=== PATIENT | male | born 1960 | race Caucasian/White ===

== ENCOUNTER → 2019-10-22 11:35 | Outpatient (CLI) | payer BC, SELFPAY ==
--- NOTE | ~2019-10-22 | XR_ITS ---
EXAMINATION: XR chest 2V EXAM DATE: 10/22/2019 11:58 INDICATION: Cough. High blood pressure. TECHNIQUE: Frontal and lateral projections of the chest obtained and reviewed. There is no prior alpesh dy for comparison. FINDINGS: The lungs are clear. There are no pleural effusions. The cardiomediastinal silhouette is within normal limits. There is no pneumothorax suspected. Bilateral humeral head rotator cuff repai r anchors. IMPRESSION: No acute cardiopulmonary findings. Reviewed, dictated and finalized at location A.
== END ==
PROVIDERS: PCP Family Medicine; Visit Provider Family Medicine
DX: R05 Cough (principal)
CPT/HCPCS: 71046

== ENCOUNTER 2020-08-28 11:45 | Inpatient (IN) | payer BC, SELFPAY ==
[2020-08-28] VITALS (19 sets, daily range): BP systolic 105–195; BP diastolic 60–108; PULSE 64–113; RESP 11–22; TEMP 35.7–36.7; O2SAT 95–100
--- NOTE | ~2020-08-28 | XR_ITS ---
EXAMINATION: XR chest 2V DATE: 08/28/2020 12:09 INDICATION: Chest pain TECHNIQUE: Frontal and lateral views of the chest are obtained COMPARISON: 10/22/2019 FINDINGS: The lungs are free of acute opacities. There is no pleural effusion or pneumothorax. The ca rdiomediastinal silhouette is normal. There is mild thoracic spondylosis. Suture anchors are noted in the humeral heads. IMPRESSION: 1. No acute cardiopulmonary abnormality. Reviewed, dictated and finalized at location A.
--- NOTE | 2020-08-28 11:47 | ECG_ITS ---
Measurements Intervals [place] Rate: 97 P: 46 OR: 161 QRS: 34 QRSD: 90 T: 62 QT: 348 QTc: 443 Interpretive Statements SINUS RHYTHM BORDERLINE ST-T WAVE ABNORMALITY- HIGH LATERAL LEADS BASELINE ARTIFACT- I, III, AVL, AVF, V4 BORDERLINE ECG Electronically Signed On 08-28-2020 21:43:48 CDT by Travon Berry D.O.
[2020-08-28] MEDS: ASPIRIN 81 MG CHEWABLE TABLET 324 MG PO (11:55)
[2020-08-28 11:59] LABS: Basophils Percent Auto 0.4 % (0.2-1.2); Eosinophils Absolute Auto 0.1 K/mm3 (0-0.3); Eosinophils Percent Auto 0.9 % (0-4.4); Hematocrit 49.3 % (42.0-52.0); Hemoglobin 16.6 g/dL (14.0-18.0); Immature Granulocyte Absolute 0.02 K/mm3 (0.00-0.031); Immature Granulocyte Percent A 0.3 % (0-0.5); Lymphocytes Absolute Auto 1.64 K/mm3 (0.9-3.2); Mean Corpuscular HGB Conc 33.7 g/dl (32-36); Mean Corpuscular Hemoglobin 28.5 pg (26-34); Mean Corpuscular Volume 84.7 fl (80-100); Mean Platelet Volume 10.1 fl (7.4-10.4); Monocytes Absolute Auto 0.5 K/mm3 (0.1-0.6); Monocytes Percent Auto 6.6 % (2.6-8.5); Neutrophils Absolute Auto 5.2 K/mm3 (1.3-6.7); Neutrophils Percent Auto 69.8 % (45.5-73.1); Platelet Count Result 288 k/mm3 (150-375); Red Blood Count 5.82 M/mm3 (4.6-6.20); White Blood Count 7.5 K/mm3 (4.5-10.0)
[2020-08-28 12:09] LABS: Prothrombin Time 12.8 Seconds (11.1-14.7)
[2020-08-28 12:10] LABS: Partial Thromboplastin Time 32.5 SECONDS (22.3-36.8)
[2020-08-28 12:17] LABS: Anion Gap 11 mmol/L (8-16); Blood Urea Nitrogen 14 mg/dL (9-20); Carbon Dioxide 29 mmol/L (22-30); Chloride 100 mmol/L (98-107); Estimated CRCL calculation 73 ml/min; Estimated Glomerular Filt Rate > 60; Glucose 134 mg/dL (75-110); Potassium 4.6 mmol/L (3.4-5.0); Sodium 140 mmol/L (137-145)
--- NOTE | 2020-08-28 12:19 | ED.CHESTPAIN ---
HPI - Chest Pain General Chief Complaint: Chest Pain Stated Complaint: chest pain, elevated bp, dizzy several days Time Seen by Provider: 08/28/20 12:06 Source: patient Mode of arrival: ambulatory Limitations: no limitations History of Present Illness HPI narrative: Patient is a 59-year-old male complaining of chest pain, midsternal, 8 out of 10 earlier, now resolved, radiating to the left upper extremity started when he woke up this morning. Patient states that he has been having intermittent chest pain for the past 3 weeks. Patient denies any shortness of breath, abdominal pain, nausea, vomiting, diaphoresis, fever or chills. Related Data Allergies Allergy/AdvReac Type Severity Reaction Status Date / Time No Known Allergies Allergy Verified 08/16/20 15:40 Review of Systems Review of Systems: All systems reviewed & are unremarkable except as noted in HPI and below Constitutional: Constitutional: Denies body ache(s), Denies chills, Denies excessive sweating, Denies fatigue, Denies fever(s), Denies headache(s), Denies lethargy, Denies malaise, Denies weakness and Denies weight loss Eyes: Eyes: Denies blurry vision, Denies change in vision and Denies loss of vision ENT: Denies dizziness, Denies ear discharge, Denies headache(s), Denies lip swelling, Denies epistaxis, Denies nasal congestion, Denies neck pain, Denies throat swelling and Denies tongue swelling Cardiovascular: Cardiovascular: Denies diaphoresis, Denies rapid heart rate, Denies edema, Denies irregular heart rhythm, Denies lightheadedness, Denies palpitations, Denies dyspnea and Denies dyspnea on exertion Respiratory: Respiratory: Denies chest congestion, Denies cough, Denies hemoptysis, Denies dyspnea and Denies dyspnea on exertion Gastrointestinal: Gastrointestinal: Denies abdominal pain, Denies melena, Denies hematochezia, Denies diarrhea, Denies nausea, Denies vomiting and Denies hematemesis Musculoskeletal: Musculoskeletal: Denies abnormal gait, Denies deformity, Denies joint swelling, Denies limited range of motion, Denies neck pain and Denies numbness Neurologic: Denies Abnormal speech present, Denies abnormal gait, Denies confusion, Denies dizziness, Denies headache(s), Denies focal weakness, Denies loss of vision, Denies numbness, Denies Other visual disturbances, Denies Sensory deficit (Neuro) and Denies weakness Psychiatric: Psychiatric: Denies confusion, Denies depression, Denies auditory hallucinations, Denies homicidal ideation and Denies suicidal ideation Endocrine: Endocrine: Denies cold intolerance, Denies excessive sweating, Denies fatigue, Denies heat intolerance and Denies palpitations Hematologic/Lymphatic: Hematologic/Lymphatic: Denies easy bleeding and Denies easy bruising Allergic/Immunologic: Allergic/Immunologic: Denies lip swelling, Denies throat swelling and Denies tongue swelling PMFSH Past Medical History Medical History Asthma Complex sleep apnea syndrome Dyslipidemia Essential hypertension Hypertension Insomnia Surgical History Surgical History H/O rotator cuff surgery (Unknown) b/l - early Family History Family History Father Acute myocardial infarction Grandparent Cancer Grandparent Acute myocardial infarction Grandparent Cancer Grandparent Acute myocardial infarction Social History Social History Smoking status: Never smoker Alcohol intake: current Substance use: never Substance use type: does not use Gender identity (if verbalized by the patient): Male Exam Const: General: cooperative, healthy appearing, comfortable, no acute distress, well developed, alert and awake; No confusion Orientation/consciousness: oriented to person, oriented to p
[2020-08-28 12:22] LABS: Troponin I 0.851 ng/mL (0.000-0.034)
[2020-08-28] MEDS: NITROGLYCERIN SL 0.4 MG TABLET SUBLINGUAL ×2 (12:56→16:21)
[2020-08-28] MEDS: NITROGLYCERIN OINTMENT 1 INCH DOSE TRANSDERM (13:00)
[2020-08-28] MEDS: ENOXAPARIN 100 MG/ML SYRINGE 90 MG SUB-Q ×2 (13:02→23:11)
[2020-08-28] MEDS: METOPROLOL TARTRATE INJ 5 MG/5 ML VIAL IV PUSH (13:08)
--- NOTE | 2020-08-28 13:23 | PM.IMHP ---
H&P: HPI History of Present Illness Date/Time: 08/28/20 13:23Patient this is a 59-year-old male patient who has a history of having hypertension. The patient also has a history of asthma. The patient has asthma and uses an albuterol inhaler p.r.n.. Her while the patient was using his albuterol every day and his doctor told him not use it every day. 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 The patient stated that 10 days ago he went to his primary care doctor to tell her that he was having chest pain and shortness of breath with exertion. The patient also has had elevated blood pressure and has not been able to control it. He is on losartan at home. He stated that his chest pain comes and goes. The patient gets chest pain and shortness of breath with exertion and it is relieved by resting. The patient stated that his primary care doctor was going to set up his stress test but has not done so as of yet. The patient stated that he has a pressure in his chest and that it goes down both arms. The patient had a tear in his eye when I saw him in the emergency room. The patient stated that his pain level is a 5 per 6/10. He is not the worst pain that he has ever experience. He was diaphoretic at 1 time and felt nauseated as well. The patient was given aspirin, nitro sublingual, Lovenox and Lopressor IV push in the emergency room. Chest x-ray was read as no acute cardiopulmonary abnormality. His troponin is noted to be 0.851 which is his baseline. Cardiology has been consulted. The patient is being admitted for observation status on 08/28/2020 date of admission. Chief Complaint: Chest pain Review of Systems Review of Systems: All systems reviewed & are unremarkable except as noted in HPI and below Constitutional: Constitutional: Reports as per HPI and Reports no additional constitutional complaints Eyes: Eyes: Reports as per HPI and Reports no additional eye complaints ENT: Reports system reviewed and no additional complaints, except as documented and Reports Normal hearing present Cardiovascular: Cardiovascular: Reports no additional cardiovascular complaints Respiratory: Respiratory: Reports no additional respiratory complaints and Reports no additional respiratory complaints Gastrointestinal: Gastrointestinal: Reports as per HPI and Reports no additional gastrointestinal complaints Musculoskeletal: Musculoskeletal: Reports no additional musculoskeletal complaints Integumentary/Breasts: Skin/Breast: Reports system reviewed and no additional complaints, except as docu and Reports as per HPI Neurologic: Reports system reviewed and no additional complaints, except as documented, Reports as per HPI and Reports Normal hearing present Psychiatric: Psychiatric: Reports no additional psychiatric complaints and Reports as per HPI Endocrine: Endocrine: Reports no additional endocrine complaints Hematologic/Lymphatic: Hematologic/Lymphatic: Reports no additional hematologic/lymphatic complaints Allergic/Immunologic: Allergic/Immunologic: Reports no additional allergic/immunologic complaints [facility] Past Medical History Medical History (Updated 08/28/20 @ 13:38 by Jana Burton NP) Asthma Complex sleep apnea syndrome Dyslipidemia Essential hypertension Hearing loss Hypertension Insomnia Obstructive sleep apnea intolerant of a BiPAP machine Surgical History Surgical History H/O rotator cuff surgery (Unknown) b/l - early Family History Family History Father Acute myocardial infarction Grandparent Cancer Grandparent Acute myocardial infarction Grandparent Cancer Grandparent Acute myocardial infarction Social History Social History (Updated 08/28/20 @ 13:44 by Jana Burton,
[2020-08-28 15:27] LABS: Troponin I 0.979 ng/mL (0.000-0.034)
--- NOTE | 2020-08-28 15:40 | PC.NURSE ---
Cardiopulmonary Rehab Services flyer was given to patient in cardiac admissions folder.
--- NOTE | 2020-08-28 16:15 | ADMGEN ---
This patient, Je Urbina, was admitted to IMU Room 207-01 at 1412. Patient/family oriented to hospital policies and general routines including ID bracelet, bed and alarms, visiting hours, pain management, procedures, bathroom and other care routines, personal items, smoking policy, room service/diet, and visiting hours. Information on how to activate the Rapid Response Team has been discussed. Patient/Family are encouraged to report perceived risks to care and to ask questions if they do not understand what they are told or what they should do.
[2020-08-28] MEDS: ACETAMINOPHEN 325 MG TABLET 650 MG PO (16:17)
--- NOTE | 2020-08-28 17:23 | PM.CNCAR ---
Assessment and Plan Additional Plan this is a 59-year-old man with history of longstanding hypertension which has not been a serious problem or difficult to control for him. He now has symptoms that are rather concerning for exertional angina for several months getting worse in the last couple of weeks or so. His troponin levels are out of normal range but they are not rising or and or falling. He is asymptomatic now and has been placed on aspirin, anticoagulation and topical nitrates. I am going to place him on a beta-eyal and anticipate recommending coronary angiography. He understands this and is agreeable. We will anticipate proceeding with this examination on Saturday after the 28 of August holiday weekend. Becomes more unstable we will proceed more urgently. Osman Win MD [facility] History of Present Illness History of Present Illness Consult date/time: 08/28/20 17:23 Consult reason: chest pain Reason For Visit: nstemi Narrative: this is a 59-year-old man with a history of hypertension who is being seen at the request of the hospitalist because of chest pain. The patient does not know of any previous history of him having any cardiac problems. He states that he has been joint fairly good health most of his adult life other than modest hypertension. He began to experience symptoms of chest discomfort and shortness of breath about 2-3 months ago. 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 He mentioned these symptoms to his primary care physician during a recent appointment and a stress test was discussed but he says not scheduled at this time. He was told that if he had worsening symptoms he should come to the emergency department. The patient states that over the last 2 couple weeks or so the symptoms have progressed with modest activity he is having relatively significant central chest discomfort associated with some arm pain and the sense of lightheadedness. After an episode like this yesterday he came into the emergency department he was admitted and has been asymptomatic since being placed in the IMU. He did receive some nitroglycerin in the emergency room which relieved his symptoms. His troponin levels are modestly elevated but flat at 0.8 in 0.9. He has a benign looking electrocardiogram and is very comfortable at this time he has been placed on medical therapy with aspirin topical nitrates and Lovenox. He has not been placed on a beta-eyal. Review of Systems Constitutional: Constitutional: Reports no additional constitutional complaints Eyes: Eyes: Reports no additional eye complaints ENT: Reports system reviewed and no additional complaints, except as documented Cardiovascular: Cardiovascular: Reports as per HPI Respiratory: Respiratory: Reports as per HPI Gastrointestinal: Gastrointestinal: Reports no additional gastrointestinal complaints Musculoskeletal: Musculoskeletal: Reports no additional musculoskeletal complaints Integumentary/Breasts: Skin/Breast: Reports system reviewed and no additional complaints, except as docu Neurologic: Reports system reviewed and no additional complaints, except as documented Endocrine: Endocrine: Reports no additional endocrine complaints Hematologic/Lymphatic: Hematologic/Lymphatic: Reports no additional hematologic/lymphatic complaints Allergic/Immunologic: Allergic/Immunologic: Reports no additional allergic/immunologic complaints REPLACED BY [facility] Past Medical History Medical History (Updated 08/28/20 @ 13:38 by Jana Burton NP) Asthma Complex sleep apnea syndrome Dyslipidemia Essential hypertension Hearing loss Hypertension Insomnia Obstructive sleep apnea intolerant of a BiPAP machine Surgical History Surgical His
[2020-08-28] MEDS: traMADol HCL (*CRX) 25 MG TABLET PO ×2 (18:00→23:55)
[2020-08-28] MEDS: carvediloL 6.25 MG TABLET PO (20:41)
[2020-08-28] MEDS: METOPROLOL TARTRATE 25 MG TABLET PO (20:42)
[2020-08-28] MEDS: ZOLPIDEM TARTRATE (*CRX) 5 MG TABLET PO (23:14)
[2020-08-29] VITALS (14 sets, daily range): BP systolic 121–136; BP diastolic 70–81; PULSE 62–92; RESP 14–20; TEMP 35.5–36.6; O2SAT 95–99
--- NOTE | 2020-08-29 | ECHO_ITS ---
Patient Info Name: Je Urbina Age: 59 years : 1960 Gender: Male Ht: 68 in Wt: 193 lbs BSA: 2.07 m2 HR: 63 bpm BP: 121 / 73 mmHg Heart Rhythm: Sinus Rhythm Technical Quality: Good Exam Date: 08/29/2020 11:59 AM Exam Location: [facility] Pulmonary Exam Room: 207 Patient Status: Inpatient Admit Date: 08/29/2020 Staff Ordering Physician: Jana Burton NP Television Cabinet Finisher: Radha Sanon RDCS Attending Provider: Subhash Whelan MD Referring Physician: Micheal VIDALES; Exam Type: CA echo doppler color flow Study Info Indications - uincontrolled htn chest pain Complete two-dimensional, color flow and Doppler transthoracic echocardiogram is performed. Summary 1. Complete two-dimensional, color flow and Doppler transthoracic echocardiogram is performed. 2. Mild concentric LVH with normal dimension and good systolic function, no wall motion abnormalities. 3. No significant valvular disease. Left Ventricle Left ventricular chamber dimension is normal. Left ventricular systolic function is normal, estimated at 60-65%. There is mild concentric increased left ventricular wall thickness. The left ventricular diastolic function is grade I diastolic dysfunction. Right Ventricle Right ventricular chamber dimension is normal. Left Atria Left atrial chamber dimension is normal. Right Atria Right atrial chamber dimension is normal. Aortic Valve The aortic valve is normal. Pulmonic Valve The pulmonic valve is normal. Mitral Valve The mitral valve has normal leaflets. Tricuspid Valve The tricuspid valve leaflets are normal. Pericardium/Pleural The pericardium appears normal. Aorta The aortic root size at the sinus of Valsalva is normal. Left Ventricular Outflow Tract Name Value Normal LVOT 2D LVOT Diameter 2.1 cm LVOT Doppler LVOT Peak Gradient 4 mmHg LVOT Mean Gradient 3 mmHg LVOT VTI 22 cm LVOT VTI/AV VTI Ratio 0.8 LVOT Stroke Volume 76 ml LVOT CO 17.1 l/min LVOT CI 8.2 l/min/m2 Pulmonic Valve Name Value Normal PV Doppler PV Peak Gradient 2 mmHg Mitral Valve Name Value Normal MV Doppler MV Decel Rolette 283 cm/s2 MV PHT 60 ms MV Area (PHT) 3.6 cm2 4.0-5.0 MV Diastolic Function
[2020-08-29 04:44] LABS: Basophils Percent Auto 0.3 % (0.2-1.2); Eosinophils Absolute Auto 0.1 K/mm3 (0-0.3); Eosinophils Percent Auto 1.1 % (0-4.4); Hematocrit 41.8 % (42.0-52.0); Hemoglobin 14.3 g/dL (14.0-18.0); Immature Granulocyte Absolute 0.04 K/mm3 (0.00-0.031); Immature Granulocyte Percent A 0.5 % (0-0.5); Lymphocytes Absolute Auto 2.39 K/mm3 (0.9-3.2); Mean Corpuscular HGB Conc 34.2 g/dl (32-36); Mean Corpuscular Hemoglobin 28.7 pg (26-34); Mean Corpuscular Volume 83.8 fl (80-100); Mean Platelet Volume 10.3 fl (7.4-10.4); Monocytes Absolute Auto 0.9 K/mm3 (0.1-0.6); Monocytes Percent Auto 9.9 % (2.6-8.5); Neutrophils Absolute Auto 5.4 K/mm3 (1.3-6.7); Neutrophils Percent Auto 61.2 % (45.5-73.1); Platelet Count Result 244 k/mm3 (150-375); Red Blood Count 4.99 M/mm3 (4.6-6.20); Red Cell Distribution Width 13.2 % (11.5-14.5); White Blood Count 8.9 K/mm3 (4.5-10.0)
[2020-08-29 05:00] LABS: Alanine Aminotransferase 38 U/L (4-50); Albumin Level 4.2 g/dL (3.5-5.1); Alkaline Phosphatase 51 U/L (38-126); Anion Gap 7 mmol/L (8-16); Aspartate Amino Transferase 65 U/L (17-59); Bilirubin,Total 0.4 mg/dL (0.2-1.3); Blood Urea Nitrogen 10 mg/dL (9-20); Calcium 9.1 mg/dL (8.4-10.2); Carbon Dioxide 27 mmol/L (22-30); Chloride 103 mmol/L (98-107); Estimated CRCL calculation 82 ml/min; Estimated Glomerular Filt Rate > 60; Glucose 97 mg/dL (75-110); Magnesium 1.9 mg/dL (1.6-2.3); Potassium 4.1 mmol/L (3.4-5.0); Sodium 137 mmol/L (137-145)
[2020-08-29 05:01] LABS: Lipase 165 U/L (23-300)
[2020-08-29 05:05] LABS: Lactic Acid Reflex 0.7 mmol/L (0.7-2.1)
[2020-08-29] MEDS: METOPROLOL TARTRATE 25 MG TABLET PO ×2 (08:30→20:02)
[2020-08-29] MEDS: LOSARTAN POTASSIUM 50 MG TABLET PO (08:31)
[2020-08-29] MEDS: ENOXAPARIN 100 MG/ML SYRINGE 90 MG SUB-Q ×2 (08:32→20:00)
--- NOTE | 2020-08-29 11:02 | PM.IMPN ---
Progress Note: A&P Assessment and Plan (1) Non-ST elevation [place] (NSTEMI): Code(s): I21.4 - Non-ST elevation (NSTEMI) myocardial infarction Status: Acute Assessment and Plan: The 1st troponin is elevated. Continue to trend. The patient has been short of breath, dizzy and having bilateral arm pain with exertion. The patient has not had a stress test as of yet. I did not order stress test as the patient appears to be having symptoms with exertion. Cardiology has been consulted. Will continue with subcu Lovenox and morphine as well as nitro. Patient's troponin could possibly just be elevated from his high blood pressure however will continue to trend. The patient stated that he has been having this problem on and off for greater than 10 days. (2) Hypertension: Qualifiers: Hypertension type: essential hypertension Qualified Code(s): I10 - Essential (primary) hypertension Code(s): I10 - Essential (primary) hypertension Status: Chronic Assessment and Plan: Uncontrolled. Continue with losartan. Continue with nitro. Continue with Coreg. (3) Obstructive sleep apnea: Code(s): G47.33 - Obstructive sleep apnea (adult) (pediatric) Status: Acute Assessment and Plan: Patient is intolerant of a CPAP machine. I explained that untreated obstructive sleep apnea can lead to heart disease. (4) Hearing loss: Code(s): H91.90 - Unspecified hearing loss, unspecified ear Status: Chronic Assessment and Plan: He wears bilateral hearing aides (5) Asthma: Qualifiers: Asthma severity: mild Asthma persistence: intermittent Asthma complication type: uncomplicated Qualified Code(s): J45.20 - Mild intermittent asthma, uncomplicated Code(s): J45.909 - Unspecified asthma, uncomplicated Status: Acute Assessment and Plan: continue inhaler. Additional Plan 08/29/20: Cardiology consult noted. Patient is stable on medication at present time. Patient is scheduled for cardiac catheterization the morning. Subjective Date/time seen: 08/29/20 11:02 patient was seen during the morning rounds today. At present patient denies any shortness of breath or chest pain. No abdominal pain, no nausea, no vomiting. Mood stable. Review of Systems Review of Systems: All systems reviewed & are unremarkable except as noted in HPI and below Constitutional: Constitutional: Reports as per HPI and Reports no additional constitutional complaints Eyes: Eyes: Reports as per HPI and Reports no additional eye complaints ENT: Reports system reviewed and no additional complaints, except as documented and Reports Normal hearing present Cardiovascular: Cardiovascular: Reports no additional cardiovascular complaints Respiratory: Respiratory: Reports no additional respiratory complaints and Reports no additional respiratory complaints Gastrointestinal: Gastrointestinal: Reports as per HPI and Reports no additional gastrointestinal complaints Musculoskeletal: Musculoskeletal: Reports no additional musculoskeletal complaints Integumentary/Breasts: Skin/Breast: Reports system reviewed and no additional complaints, except as docu and Reports as per HPI Neurologic: Reports system reviewed and no additional complaints, except as documented, Reports as per HPI and Reports Normal hearing present Psychiatric: Psychiatric: Reports no additional psychiatric complaints and Reports as per HPI Endocrine: Endocrine: Reports no additional endocrine complaints Hematologic/Lymphatic: Hematologic/Lymphatic: Reports no additional hematologic/lymphatic complaints Allergic/Immunologic: Allergic/Immunologic: Reports no additional allergic/immunologic complaints Exam Const: General: cooperative, healthy appearing, comfortable, no acute distress, well developed, alert, awake and Physically active Nutritional Appearance: average body habitus and well nourished Orientation/c
--- NOTE | 2020-08-29 12:25 | PM.PNCARD ---
Progress Note: A&P Additional Plan 59-year-old man with: Non ST-elevation DE plans are in place for coronary angiography tomorrow after the holiday weekend. He is clinically stable further recommendations will be forthcoming the angiographic findings Osman Win MD [facility] Subjective Date/time seen: date of service:08/29/20 12:25 Interval history: This is a 59-year-old man with: Symptoms compatible with exertional angina / myocardial ischemia culminating in severe discomfort prompting admission to the hospital and evidence of small non ST elevation DE by enzyme criteria. Plans are in place for coronary angiography tomorrow. Patient understands this and is agreeable to proceed. Exam Const: General: comfortable and no acute distress HENMT: Mouth: Yes moist mucous membranes Eyes: Sclera: sclerae normal Pupils: Equal, round and reactive pupils present Neck: Neck: supple and no JVD Thyroid: thyroid normal Other: Carotid pulses normal bilaterally Resp: Effort & Inspection: normal respiratory effort Auscultation: clear to auscultation bilaterally Cardio: Rate: regular rate Rhythm: regular rhythm Other: PMI difficult to palpate no murmur no gallop GI: GI Palp: Yes Soft to palpation Auscultation: normal bowel sounds Skin: General skin exam: normal color Neuro: Cognition (Neuro): normal cognition Extrem: General: normal to inspection Objective Data Vital Signs Vital Signs: Vital Signs - 24 hr 08/28/20 12:57 08/28/20 12:59 08/28/20 13:03 Temperature 36.5 C 36.3 C L Pulse Rate 98 108 H 113 H Respiratory Rate 13 22 H Blood Pressure 150/108 H 148/105 H Pulse Oximetry 96 97 08/28/20 13:08 08/28/20 13:10 08/28/20 13:20 Temperature 36.7 C 36.6 C Pulse Rate 90 87 80 Respiratory Rate 11 L 14 Blood Pressure 141/100 H 135/89 Pulse Oximetry 96 95 08/28/20 14:02 08/28/20 15:59 08/28/20 16:00 Temperature 36.7 C 35.7 C L Pulse Rate 79 64 66 Respiratory Rate 19 16 Blood Pressure 128/94 H 116/80 Pulse Oximetry 95 96 08/28/20 18:00 08/28/20 19:12 08/28/20 20:00 Temperature 36.2 C L Pulse Rate 90 79 89 Respiratory Rate 16 Blood Pressure 119/67 Pulse Oximetry 96 08/28/20 20:41 08/28/20 20:42 08/28/20 22:00 Temperature Pulse Rate 80 76 65 Respiratory Rate Blood Pressure Pulse Oximetry 08/28/20 23:23 08/29/20 00:00 08/29/20 02:00 Temperature 36.2 C L Pulse Rate 72 73 70 Respiratory Rate 20 Blood Pressure 105/60 Pulse Oximetry 98 08/29/20 04:00 08/29/20 06:00 08/29/20 08:00 Temperature 36.1 C L 35.5 C L Pulse Rate 72 79 79 Respiratory Rate 18 16 Blood Pressure 121/73 136/81 Pulse Oximetry 95 96 08/29/20 08:30 08/29/20 08:46 08/29/20 12:00 Temperature 35.5 C L Pulse Rate 92 90 62 Respiratory Rate 14 Blood Pressure 127/70 Pulse Oximetry 96 Intake/Output Intake/Output: Intake & Output 08/26/20 08/27/20 08/28/20 08/29/20 23:59 23:59 23:59 23:59 Intake Total 440 240 Output Total 250 300 Balance 190 -60 Meds/Results Medications: Active Medications Generic Name Dose Route Start Last Admin Trade Name Freq PRN Reason Stop Dose Admin Acetaminophen 650 mg 08/28/20 15:53 08/28/20 16:17 Acetaminophen 325 Mg Tablet PO 650 mg Q6H PRN Administration Mild Pain (1-3) or Fever Albuterol 2 puff 08/28/20 15:44 Albuterol Sulfate (*Sp) Aerosol 1 Puff INHALATION Q4-6H PRN shortness of breath or wheezing Enoxaparin Sodium 90 mg 08/28/20 23:00 08/29/20 08:32 Enoxaparin 100 Mg/Ml Syringe SUB-Q 90 mg Q12HR KISHA Administration Losartan Potassium 50 mg 08/29/20 09:00 08/29/20 08:31 Losartan Potassium 50 Mg Tablet PO 50 mg DAILY KISHA Administration Metoprolol Tartrate 25 mg 08/28/20 21:00 08/29/20 08:30 Metoprolol Tartrate 25 Mg Tablet PO 25 mg Q12HR KISHA Administration Morphine Sulfate 2 mg 08/28/20 14:02 Morphine Sulfate (*Crx) 2 M
[2020-08-30] VITALS (31 sets, daily range): BP systolic 121–183; BP diastolic 74–111; PULSE 61–97; RESP 12–98; TEMP 36.2–36.7; O2SAT 16–99
[2020-08-30] MEDS: METOPROLOL TARTRATE 25 MG TABLET PO ×2 (09:30→20:00)
[2020-08-30] MEDS: LOSARTAN POTASSIUM 50 MG TABLET PO (09:31)
--- NOTE | 2020-08-30 09:35 | WPDMODSED ---
Moderate Sedation Note-Pt Data Patient Data Diagnosis: coronary artery disease with non ST elevation OK Present Complaint: no complaints this morning Procedure to be performed/Plan: left heart catheterization Allergies Allergy/AdvReac Type Severity Reaction Status Date / Time No Known Allergies Allergy Verified 08/28/20 13:17 Home Medications Medication Instructions Recorded Confirmed Type albuterol sulfate 90 mcg/actuation 2 puff INHALATION Q4-6H PRN #8.5 gm 03/02/19 08/28/20 Rx aerosol inhaler losartan 50 mg tablet 50 mg PO DAILY #90 tablet 07/21/20 08/28/20 Rx fluticasone furoate 100 1 inh INHALATION DAILY #90 ea 08/23/20 08/28/20 Rx mcg/actuation blister powder for inhalation zolpidem [Ambien] 5 mg PO PRN PRN 08/28/20 08/28/20 History Current Medications: Active Medications Acetaminophen (Acetaminophen 325 Mg Tablet) 650 mg PO Q6H PRN PRN Reason: Mild Pain (1-3) or Fever Last Admin: 08/28/20 16:17 Dose: 650 mg Documented by: Albuterol (Albuterol Sulfate (*Sp) Aerosol 1 Puff) 2 puff INHALATION Q4-6H PRN PRN Reason: shortness of breath or wheezing Enoxaparin Sodium (Enoxaparin 100 Mg/Ml Syringe) 90 mg SUB-Q Q12HR [facility] Last Admin: 08/30/20 09:29 Dose: Not Given Documented by: Losartan Potassium (Losartan Potassium 50 Mg Tablet) 50 mg PO DAILY [facility] Last Admin: 08/30/20 09:31 Dose: 50 mg Documented by: Metoprolol Tartrate (Metoprolol Tartrate 25 Mg Tablet) 25 mg PO Q12HR [facility] Last Admin: 08/30/20 09:30 Dose: 25 mg Documented by: Morphine Sulfate (Morphine Sulfate (*Crx) 2 Mg/Ml Inj) 2 mg IV PUSH Q4H PRN PRN Reason: Pain Rated 7-10 Nitroglycerin (Nitroglycerin Sl 0.4 Mg Tablet) 0.4 mg SUBLINGUAL Q5MIN PRN PRN Reason: Chest Pain Last Admin: 08/28/20 16:21 Dose: 0.4 mg Documented by: Non-Formulary Medication (Fluticasone Furoate [Arnuity Ellipta]) 1 inhalation INHALATION DAILY KISHA Stop: 09/28/20 09:01 Tramadol HCl (Tramadol Hcl (*Crx) 25 Mg Tablet) 25 mg PO Q4H PRN PRN Reason: Pain Rated 4-6 Last Admin: 08/28/20 23:55 Dose: 25 mg Documented by: Zolpidem Tartrate (Zolpidem Tartrate (*Crx) 5 Mg Tablet) 5 mg PO PRN PRN PRN Reason: Sleep Last Admin: 08/28/20 23:14 Dose: 5 mg Documented by: Sedation/Anesthesia: No previous sedation/anesthesia problems (including family history). [facility] Past Medical History Medical History (Updated 08/28/20 @ 13:38 by Jana Burton NP) Asthma Complex sleep apnea syndrome Dyslipidemia Essential hypertension Hearing loss Hypertension Insomnia Obstructive sleep apnea intolerant of a BiPAP machine Surgical History Surgical History H/O rotator cuff surgery (Unknown) b/l - early Family History Family History Father Acute myocardial infarction Grandparent Cancer Grandparent Acute myocardial infarction Grandparent Cancer Grandparent Acute myocardial infarction Social History Social History (Updated 08/28/20 @ 13:44 by Jana Burton NP) Social History: the patient is and lives with his . She is the durable power attorney at law for healthcare. They have 2 children. The patient desires to be a full code. The patient drinks on the weekend he cannot quantify how much he drinks on the weekends but does not drink through the week. He is a lifelong nonsmoker. He does not use any marijuana or illicit drugs. 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 Smoking status: Never smoker Alcohol intake: current Substance use: never Substance use type: does not use Other substance usage details: socially Gender identity (if verbalized by the patient): Male Spiritual care concerns: No Mod Sed Physical Exam Physical Exam Pre Procedural Exam: Normal: Appearance, Neck, Throat, Airway, Lungs, Heart Size, Heart Rate, Heart Rhythm and Extremities Hours sinc
--- NOTE | 2020-08-30 10:48 | ECG_ITS ---
Measurements Intervals [place] Rate: 59 P: 36 HI: 173 QRS: 28 QRSD: 89 T: 36 QT: 395 QTc: 394 Interpretive Statements SINUS BRADYCARDIA BORDERLINE ECG Electronically Signed On 08-30-2020 17:05:47 CDT by Travon Berry D.O.
--- NOTE | 2020-08-30 10:58 | SUR.PHASEII ---
BEGIN PHASE II RECOVERY. RETURNS TO RESEARCH CHEF 7 S/P C W/ PCI W/ DR. MONTOYA. 6FR SHEATH INTACT R. GROIN. SITE WITHOUT BLEEDING OR HEMATOMA. R. PEDAL PULSE PALP STRONG. ANGIOMAX GTT CONTINUES VIA PUMP. REVIEWED BEDREST ACTIVITY RESTRICTIONS W/ PT. VOICED UNDERSTANDING. BP ELEVATED AT THIS TIME. REPORTS IMPROVING CENTRAL, NON-RADIATING CHEST TIGHTNESS ON ARRIVAL. WILL CONTINUE TO MONITOR.
--- NOTE | 2020-08-30 11:04 | WPDCARDPROC ---
Cardiac Cath Procedure Note Date of procedure:: 08/30/20 Performing physician:: Osman Win MD Indication:: acute coronary syndrome Brief clinical history:: this is a 59-year-old man with no prior history of coronary disease who entered the hospital with recent onset of exertional chest discomfort which accelerated and he presented to the emergency room where he was treated medically and stabilized. He had a modest troponin rise prompting the recommendation to perform an angiogram. Procedure Procedure performed:: Coronary angiography left ventriculography PCI (DEEDEE) to the anterior descending and OM 3 Sedation/Medication given:: fentanyl 50 mg Versed 2 mg case start time 9:52 a.m. case end time 10:40 a.m. sedation provided by Maryanne Hatch RN, trained observer Access site:: right femoral artery Estimated blood loss:: 15-20 cc Procedure note:: patient was brought to the cardiac catheterization lab in the postabsorptive state where the right femoral triangle was prepared and draped in the normal fashion. Anesthesia was provided with 1% lidocaine infiltrated locally. Using the modified Seldinger technique a 5 Uzbek sheath was placed into the femoral artery after this left heart catheterization was carried out. I used a 5 Uzbek angled pigtail catheter to measure left-sided hemodynamics and to injected LV g in the TOWNSEND projection. After this I used a 5 Uzbek FL4 catheter to engage and inject the left coronary artery and then a 5 Uzbek JR4 catheter to engage and inject the right coronary artery. The cine angiograms were then reviewed and after this PCI of the LAD and OM3 were recommended and carried out as detailed below. Prior to PCI the 5 Uzbek sheath was changed for a 6 Uzbek over a guidewire and the patient was systemically anticoagulated with bolus and infusion of Angiomax. He received aspirin and 180 mg of Brilinta prior to the PCI as well. After the intervention the patient was stable had very mild residual chest pain he was given a nitroglycerin spray for this. The procedure was successful and uncomplicated. 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 Findings:: Hemodynamics: Central aortic pressure is 122 over 68 left ventricle 122/0 end-diastolic 16. There is no systolic gradient on pullback across the aortic valve. Left ventricle: The LV is normal in size the contractility appears to be preserved in all segments the global ejection fraction is 55-60%. The left main coronary artery is nicely patent the left anterior descending is a moderate caliber artery extending down to around the apex there is a discrete high-grade 99% stenosis in the LAD just after the major diagonal branch takes its origin. Distally the LAD is free of significant disease. The circumflex is a large caliber vessel which is dominant to the posterior circulation. There is a very small ramus intermedius branch that has 80-90% stenosis, this vessel is far too small to be suitable for PCI. A 2nd marginal branch is medium in size and free of significant disease. The 3rd marginal branch is a medium-sized vessel with a high-grade 95% stenosis in its proximal aspect. The posterior circumflex branches are rather small with mild diffuse atherosclerosis. The right coronary artery is small and non dominant giving rise to right ventricular circulation. The right coronary is normal angiographically. Intervention: Following anticoagulation and loading with aspirin and Brilinta to the left main coronary artery was cannulated using a 6 Uzbek JL 3.5 guiding catheter. The 0.014 [employer] coronary guidewire was used to wire the LAD the lesion was then pre-dilated using a 2.5 by 20 mm emerge balloon. Following this the segment was stented using a 3 x 18 mm [employer] drug-eluting stent with a good anatomical result. There was some stenosis in the ostium of the diagonal branch following the stent deployment. The stent was not deployed
--- NOTE | 2020-08-30 11:10 | SUR.PHASEII ---
ANGIOMAX GTT COMPLETE. R. GROIN SHEATH MAY BE PULLED AFTER 2 HOURS (1310).
--- NOTE | 2020-08-30 12:00 | SUR.PHASEII ---
BP CONTINUES ELEVATED. 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
[2020-08-30] MEDS: LABETALOL HCL INJ 100 MG/20 ML VIAL 20 MG IV PUSH (13:15)
[2020-08-30] MEDS: SODIUM CHLORIDE 0.9% IV 1,000 ML 125 ML IV CONT (13:15)
--- NOTE | 2020-08-30 13:15 | SUR.PHASEII ---
NEW IV SITE TO R. FOREARM BY MAURILIO SINGH RN USING ULTRASOUND AFTER BOTH IV SITES L. HAND AND AC FOUND TENDER. LABETALOL 20MG GIVEN IVP FOR ELEVATED BP. WILL CONTINUE TO MONITOR. REPORTS CHEST TIGHTNESS PRESENT UPON ARRIVAL TO [facility] IS GONE.
--- NOTE | 2020-08-30 14:08 | SUR.PHASEII ---
MANUAL SHEATH PULL FROM R. GROIN PER PROTOCOL AT THIS TIME BY THIS RN. FIRM, STEADY PRESSURE TO SITE TO ACHIEVE HEMOSTASIS.
--- NOTE | 2020-08-30 14:45 | SUR.PHASEII ---
HEMOSTASIS ACHIEVED AFTER 37 MINUTES FIRM, STEADY MANUAL PRESSURE HELD TO R. GROIN PUNCTURE SITE BY THIS RN. TOLERATED WELL. SITE SOFT, NONTENDER. NO BLEEDING OR HEMATOMA NOTED. SITE DRESSED W/ STAT SEAL AND TEGADERM. REVIEWED BEDREST ORDERS AND ACTIVITY RESTRICTIONS W/ PT. VOICED UNDERSTANDING. BEDREST X 6 HOURS UNTIL 2044. IVF'S RUNNING ORDERED. WILL CONTINUE TO MONITOR.
--- NOTE | 2020-08-30 15:55 | SUR.PHASEII ---
NO CHANGE IN R. GROIN STATUS. BEDREST CONTINUES. TO BEDSIDE. REPORT CALLED TO SARAI RUEDA IN IMU. DR. RODRIGUEZ HAS BEEN HERE TO SEE PT. UPDATED SENIOR INTEGRATION ARCHITECT KERI HAYNES ON PT'S WORKING CONDITION FOR DISCHARGE PLANNING. VSS. VOICES NO C/O. WILL CONTINUE TO MONITOR.
--- NOTE | 2020-08-30 16:10 | PM.IMPN ---
Progress Note: A&P Assessment and Plan (1) Non-ST elevation [place] (NSTEMI): Code(s): I21.4 - Non-ST elevation (NSTEMI) myocardial infarction Status: Acute Assessment and Plan: The 1st troponin is elevated. Continue to trend. The patient has been short of breath, dizzy and having bilateral arm pain with exertion. The patient has not had a stress test as of yet. I did not order stress test as the patient appears to be having symptoms with exertion. Cardiology has been consulted. Will continue with subcu Lovenox and morphine as well as nitro. Patient's troponin could possibly just be elevated from his high blood pressure however will continue to trend. The patient stated that he has been having this problem on and off for greater than 10 days. 08/30/20 16:10 The 1st troponin is elevated. Continue to trend. The patient has been short of breath, dizzy and having bilateral arm pain with exertion. The patient has not had a stress test as of yet. I did not order stress test as the patient appears to be having symptoms with exertion. Cardiology has been consulted. Will continue with subcu Lovenox and morphine as well as nitro. Patient's troponin could possibly just be elevated from his high blood pressure however will continue to trend. The patient stated that he has been having this problem on and off for greater than 10 days. today patient was taken to cardiac catheterization is found to have significant 2 vessels coronary artery disease with high-grade lesions in mid lad and OM3 branch which was successfully stented, patient states feeling much better denies any complaint of chest pain or shortness of breath, will monitor overnight and further recommendation to follow. (2) Hypertension: Qualifiers: Hypertension type: essential hypertension Qualified Code(s): I10 - Essential (primary) hypertension Code(s): I10 - Essential (primary) hypertension Status: Chronic Assessment and Plan: Uncontrolled. Continue with losartan. Continue with nitro. Continue with Coreg. (3) Obstructive sleep apnea: Code(s): G47.33 - Obstructive sleep apnea (adult) (pediatric) Status: Acute Assessment and Plan: Patient is intolerant of a CPAP machine. I explained that untreated obstructive sleep apnea can lead to heart disease. (4) Hearing loss: Code(s): H91.90 - Unspecified hearing loss, unspecified ear Status: Chronic Assessment and Plan: He wears bilateral hearing aides (5) Asthma: Qualifiers: Asthma severity: mild Asthma persistence: intermittent Asthma complication type: uncomplicated Qualified Code(s): J45.20 - Mild intermittent asthma, uncomplicated Code(s): J45.909 - Unspecified asthma, uncomplicated Status: Acute Assessment and Plan: continue inhaler. Additional Plan 08/29/20: Cardiology consult noted. Patient is stable on medication at present time. Patient is scheduled for cardiac catheterization the morning. Subjective Date/time seen: 08/30/20 16:10 The 1st troponin is elevated. Continue to trend. The patient has been short of breath, dizzy and having bilateral arm pain with exertion. The patient has not had a stress test as of yet. I did not order stress test as the patient appears to be having symptoms with exertion. Cardiology has been consulted. Will continue with subcu Lovenox and morphine as well as nitro. Patient's troponin could possibly just be elevated from his high blood pressure however will continue to trend. The patient stated that he has been having this problem on and off for greater than 10 days. today patient was taken to cardiac catheterization is found to have significant 2 vessels coronary artery disease with high-grade lesions in mid lad and OM3 branch which was successfully stented, patient states feeling much better denies any complaint of chest pain or shortness of breath, will monitor
--- NOTE | 2020-08-30 16:20 | SUR.PHASEII ---
END PHASE II RECOVERY. RETURNED TO IMU 207 VIA BED ON TELE MONITOR. HOB UP 30 DEGREES. BEDREST CONTINUES UNTIL 2044. NO CHANGE IN Kyra KAY STATUS. IVF'S CONTINUE. Kyra KAY SITE OBSERVED W/ SARAI RUEDA AT BEDSIDE. VOICES NO C/O. NO DISTRESS NOTED.
[2020-08-30] MEDS: traMADol HCL (*CRX) 25 MG TABLET PO (17:31)
[2020-08-30] MEDS: MORPHINE SULFATE (*CRX) 2 MG/ML INJ IV PUSH (19:50)
[2020-08-30] MEDS: ENOXAPARIN 100 MG/ML SYRINGE 90 MG SUB-Q (19:59)
[2020-08-30] MEDS: TICAGRELOR 90 MG TABLET PO (20:00)
[2020-08-31] VITALS (8 sets, daily range): BP systolic 124–156; BP diastolic 82–93; PULSE 66–85; RESP 16–18; TEMP 36.6–36.8; O2SAT 95–98
--- NOTE | 2020-08-31 05:11 | ECG_ITS ---
Measurements Intervals [place] Rate: 86 P: 5 MD: 157 QRS: 23 QRSD: 89 T: 69 QT: 362 QTc: 435 Interpretive Statements SINUS RHYTHM NONSPECIFIC ST & T-WAVE ABNORMALITY- INF/LAT LEADS BASELINE ARTIFACT- I, II, III, AVR, AVF BORDERLINE ECG Electronically Signed On 08-31-2020 8:25:03 CDT by Travon Berry D.O.
[2020-08-31] MEDS: METOPROLOL TARTRATE 25 MG TABLET PO (08:05)
[2020-08-31] MEDS: ASPIRIN 81 MG CHEWABLE TABLET PO (08:05)
[2020-08-31] MEDS: ROSUVASTATIN 10 MG TABLET 20 MG PO (08:05)
[2020-08-31] MEDS: TICAGRELOR 90 MG TABLET PO (08:05)
[2020-08-31] MEDS: ENOXAPARIN 100 MG/ML SYRINGE 90 MG SUB-Q (08:06)
[2020-08-31] MEDS: LOSARTAN POTASSIUM 50 MG TABLET PO (08:06)
--- NOTE | 2020-08-31 09:13 | PM.PNCARD ---
Progress Note: A&P Additional Plan 59-year-old man with: Newly diagnosed coronary artery disease revascularization performed yesterday successfully involving stenting of the LAD and the largest marginal branch, OM 3 in his dominant circumflex. Doing well and asymptomatic this morning. He is a good candidate for discharge and I will see the my office has an appointment for follow-up with me in several weeks. He is to adhere to limited activity until he is seen in the office he should restrict himself to light activity at home and avoid exerting and no heavy lifting for the next week. importance of strict adherence to dual anti-platelet therapy was recommended and stressed. Osman Win MD [facility] Subjective Date/time seen: date of service:08/31/20 09:13 Interval history: This is a 59-year-old man with: Symptoms compatible with exertional angina / myocardial ischemia culminating in severe discomfort prompting admission to the hospital and evidence of small non ST elevation [place] by enzyme criteria. Patient was brought to the labor standards director yesterday for angiography and found to have significant 2 vessel coronary disease with high-grade stenosis in the mid LAD and another 1 in the OM 3 branch of the circumflex which was a dominant vessel and the largest of the marginal branches. There was also significant disease in OM1 which is a ramus intermedius artery which is extremely small and not suitable for revascularization. Patient underwent successful PCI with drug-eluting stenting to the LAD into the 3rd marginal branch with a good angiographic result. He is asymptomatic this morning and feels well. Long discussion with the patient about the details of his procedure yesterday and the changes in his medications which of course will include dual anti-platelet therapy, rosuvastatin and beta eyal in place of his losartan. Exam Const: General: comfortable and no acute distress Other: Very pleasant gentleman comfortable cooperative in no distress of any sort. HENMT: Mouth: Yes moist mucous membranes Eyes: Sclera: sclerae normal Pupils: Equal, round and reactive pupils present Neck: Neck: supple and no JVD Thyroid: thyroid normal Carotids: bruit Other: Carotid pulses normal bilaterally Resp: Effort & Inspection: normal respiratory effort Auscultation: clear to auscultation bilaterally Cardio: Rate: regular rate Rhythm: regular rhythm Other: PMI difficult to palpate no murmur no gallop GI: Auscultation: normal bowel sounds Skin: General skin exam: normal color Neuro: Cranial nerves: Yes Equal, round and reactive pupils present Cognition (Neuro): normal cognition Extrem: General: normal to inspection Other: normal pulses, no edema Objective Data Vital Signs Vital Signs: Vital Signs - 24 hr 08/30/20 09:30 08/30/20 11:10 08/30/20 11:25 Temperature 36.2 C L Pulse Rate 74 63 67 Respiratory Rate 16 16 Blood Pressure 175/107 H 183/102 H Pulse Oximetry 98 99 08/30/20 11:40 08/30/20 11:55 08/30/20 12:25 Temperature Pulse Rate 61 67 72 Respiratory Rate 16 16 16 Blood Pressure 179/111 H 169/96 H 163/101 H Pulse Oximetry 98 99 98 08/30/20 12:55 08/30/20 14:05 08/30/20 14:15 Temperature Pulse Rate 81 76 83 Respiratory Rate 16 15 16 Blood Pressure 147/99 H 157/101 H 137/94 H Pulse Oximetry 98 98 97 08/30/20 14:25 08/30/20 14:35 08/30/20 14:45 Temperature Pulse Rate 82 86 84 Respiratory Rate 15 18 15 Blood Pressure 152/88 H 144/95 H 124/95 H Pulse Oximetry 96 97 98 08/30/20 15:00 08/30/20 15:15 08/30/20 15:30 Temperature Pulse Rate 72 70 74 Respiratory Rate 16 16 16 Blood Pressure 140/87 141/74 H 134/90 Pulse Oximetry 98 98 98 08/30/20 16:00 08/30/20 16:30 08/30/20 16:33 Temperature 36.5 C 36.6 C Pulse Rate 74 82 83 Respiratory Rate 16 98 H 16 Blood Pressure 132/89 139/96 H 139/96 H Pulse Oximetry 98 16 L 99 08/30/20 17:30 08/30/20 18:00 08/30/20 18:30
--- NOTE | 2020-08-31 12:38 | PM.DS ---
DS: Admitting Diagnosis Admitting Diagnosis Admitting Diagnosis: Chief Complaint: Chest pain DS: Discharge Diagnosis Discharge Diagnosis (1) Non-ST elevation [place] (NSTEMI): Code(s): I21.4 - Non-ST elevation (NSTEMI) myocardial infarction Status: Acute Assessment and Plan: The 1st troponin is elevated. Continue to trend. The patient has been short of breath, dizzy and having bilateral arm pain with exertion. The patient has not had a stress test as of yet. I did not order stress test as the patient appears to be having symptoms with exertion. Cardiology has been consulted. Will continue with subcu Lovenox and morphine as well as nitro. Patient's troponin could possibly just be elevated from his high blood pressure however will continue to trend. The patient stated that he has been having this problem on and off for greater than 10 days. 08/30/20 16:10 The 1st troponin is elevated. Continue to trend. The patient has been short of breath, dizzy and having bilateral arm pain with exertion. The patient has not had a stress test as of yet. I did not order stress test as the patient appears to be having symptoms with exertion. Cardiology has been consulted. Will continue with subcu Lovenox and morphine as well as nitro. Patient's troponin could possibly just be elevated from his high blood pressure however will continue to trend. The patient stated that he has been having this problem on and off for greater than 10 days. 08/31 patient was taken to cardiac catheterization is found to have significant 2 vessels coronary artery disease with high-grade lesions in mid lad and OM3 branch which was successfully stented, patient states feeling much better denies any complaint of chest pain or shortness of breath, will monitor overnight and further recommendation to follow. patient is clinically stable will discharge home today. (2) Hypertension: Qualifiers: Hypertension type: essential hypertension Qualified Code(s): I10 - Essential (primary) hypertension Code(s): I10 - Essential (primary) hypertension Status: Chronic Assessment and Plan: Uncontrolled. Continue with losartan. Continue with nitro. Continue with Coreg. (3) Obstructive sleep apnea: Code(s): G47.33 - Obstructive sleep apnea (adult) (pediatric) Status: Acute Assessment and Plan: Patient is intolerant of a CPAP machine. I explained that untreated obstructive sleep apnea can lead to heart disease. (4) Hearing loss: Code(s): H91.90 - Unspecified hearing loss, unspecified ear Status: Chronic Assessment and Plan: He wears bilateral hearing aides (5) Asthma: Qualifiers: Asthma severity: mild Asthma persistence: intermittent Asthma complication type: uncomplicated Qualified Code(s): J45.20 - Mild intermittent asthma, uncomplicated Code(s): J45.909 - Unspecified asthma, uncomplicated Status: Acute Assessment and Plan: continue inhaler. DS: Summary Hospital Course Reason for hospitalization: Patient this is a 59-year-old male patient who has a history of having hypertension. The patient also has a history of asthma. The patient has asthma and uses an albuterol inhaler p.r.n.. Her while the patient was using his albuterol every day and his doctor told him not use it every day. 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 The patient stated that 10 days ago he went to his primary care doctor to tell her that he was having chest pain and shortness of breath with exertion. The patient also has had elevated blood pressure and has not been able to control it. He is on losartan at home. He stated that his chest pain comes and goes. The patient gets chest pain and shortness of breath with exertion and it is relieved by resting. The patient stated that his primary
== END 2020-08-31 13:15 | disposition home or self-care (01) | DRG 247 ==
LOC: ANHED 12:54 → ANHIMU 13:29
PROVIDERS: Nurse Practitioner; Specialist; Admitting Provider Internal Medicine; Emergency Provider Emergency Medicine; PCP Family Medicine; Visit Provider Family Medicine
PROC: 4A023N7 Measurement of Cardiac Sampling and Pressure, Left Heart, Percutaneous Approach (ICD-10-PCS; CPT 93452; principal; 2020-08-30 10:30)
PROC: 027135Z Dilation of Coronary Artery, Two Arteries with Two Drug-eluting Intraluminal Devices, Percutaneous Approach (ICD-10-PCS; 2020-08-30 10:30)
PROC: 027135Z Dilation of Coronary Artery, Two Arteries with Two Drug-eluting Intraluminal Devices, Percutaneous Approach (ICD-10-PCS; CPT 92928; 2020-08-30 10:30)
DX: I21.4 Non-ST elevation (NSTEMI) myocardial infarction (principal); I25.10 Atherosclerotic heart disease of native coronary artery without angina pectoris; I10 Essential (primary) hypertension; J45.20 Mild intermittent asthma, uncomplicated; E78.5 Hyperlipidemia, unspecified; G47.33 Obstructive sleep apnea (adult) (pediatric); G47.00 Insomnia, unspecified; H91.90 Unspecified hearing loss, unspecified ear; Z79.899 Other long term (current) drug therapy
CPT/HCPCS: 36415; 71046; 80048; 80053; 83605; 83690; 83735; 84443; 84484; 85025; 85610; 85730; 93005; 93306; 93458; 96372; 96374; 99291; A9270; C1725; C1769; C1874; C1887; C1894; C9600; G0378; J0461; J0583; J1644; J1650; J2250; J2270; J3010; J7030; J7040

== ENCOUNTER 2020-12-12 15:00 | Outpatient (RCR) | payer BC, SELFPAY ==
[2020-09-20 08:17] VITALS: BP 112/70; PULSE 65; RESP 16; O2SAT 97
[2020-09-20 09:10] VITALS: PULSE 58
== END 2020-12-12 19:30 | disposition home or self-care (01) ==
LOC: ANHCPREHAB 15:00
PROVIDERS: PCP Family Medicine; Visit Provider Specialist
DX: I25.2 Old myocardial infarction (principal)
CPT/HCPCS: 93798

== ENCOUNTER 2021-06-23 14:17 | Outpatient (CLI) | payer OTHER, SELFPAY ==
--- NOTE | 2021-06-23 17:39 | WPDPFTINT ---
PFT Procedure Performed PFT Procedure Performed Spirometry with Pre/Post Bronchodilator Plethysmography (Lung Vol) Diffusing Cap (DLCO) Flow Vol Loop PFT Interpretation This is a pulmonary function test with pre and post-bronchodilator spirometry, plethysmography and diffusing capacity. The test was performed and results interpreted in accordance with the 2019 and 2005 ATS/ERS Task Force guidelines respectively using the Global Lung Function Initiative-2012 reference equations. Patient demonstrated good effort and cooperation. Reproducibility criteria were met. The quality of the pre bronchodilator spirometry maneuver was Grade A and post bronchodilator spirometry maneuver was Grade A. Findings: Spirometry: The contour the inspiratory and expiratory flow tracing are normal. The pre bronchodilator FVC is 4.57 L, 120% predicted. The pre bronchodilator FEV1 is 3.48 L, 117% predicted. The pre bronchodilator FEV1: FVC ratio 76%. The post bronchodilator FVC is 4.20 L, representing 8% decrease. The post bronchodilator FEV1 is 3.40 L, representing a 2% decrease. The post bronchodilator FEV1: FVC ratio was 81%. Plethysmography: The total lung capacity is 6.21 L, 104% predicted. The functional residual capacity is 2.44 L, 80% predicted. The residual volume is 1.64 L, 82% predicted. Diffusing capacity: The diffusion capacity unadjusted for hemoglobin and carboxyhemoglobin is 29.0, 112% predicted. The diffusing capacity adjusted for alveolar volume is 4.34, 97% predicted. In comparison to previous pulmonary function test on 02/16/2019 the post bronchodilator FVC is unchanged from 4.27 L to 4.20 L. The post bronchodilator FEV1 is unchanged from 3.48 L to 3.40 L. The total lung capacity is decreased from 7.36 L to 6.21 L. The functional residual capacity is decreased from 3.87 L to 2.44 L. The residual volume is decreased from 3.19 L to 1.64 L. The diffusing capacity unadjusted for hemoglobin and carboxyhemoglobin is unchanged from 27.4 to 29.0. The diffusing capacity adjusted for alveolar volume is unchanged from 4.94 to 4.34 Impression: The spirometry is normal without evidence of an obstructive abnormality. There is no significant improvement after inhaling a single dose of albuterol. The lung volumes are normal. The diffusing capacity is normal. in comparison to the previous pulmonary function test on 02/16/2019 there is a greater than anticipated time dependent decrease in total lung capacity, functional residual capacity and residual volume with no change in the FVC, FEV1 and diffusing capacity. Clinical correlation is recommended. There are no prior studies for comparison
== END 2021-06-23 14:18 | disposition home or self-care (01) ==
PROVIDERS: PCP Family Medicine; Visit Provider Internal Medicine Critical Care Medicine
DX: R06.02 Shortness of breath (principal); R06.2 Wheezing
CPT/HCPCS: 94060; 94618; 94726; 94729

== ENCOUNTER 2022-01-03 08:49 | Outpatient (CLI) | payer OTHER, SELFPAY ==
--- NOTE | 2022-01-03 09:00 | ECG_ITS ---
Measurements Intervals Elmer Rate: 64 P: -1 MI: 190 QRS: 22 QRSD: 82 T: 30 QT: 399 QTc: 413 Interpretive Statements SINUS RHYTHM NORMAL ECG COMPARED TO ECG 08/31/2020 08:09:17 NO SIGNIFICANT CHANGES Electronically Signed On 01-03-2022 9:31:39 IT SYSTEMS ANALYST CONSULTANT by Travon Berry D.O.
== END 2022-01-03 08:50 | disposition home or self-care (01) ==
LOC: ANHSURGERY 08:53
PROVIDERS: PCP Family Medicine; Visit Provider Surgery
DX: K40.90 Unilateral inguinal hernia, without obstruction or gangrene, not specified as recurrent (principal); E78.5 Hyperlipidemia, unspecified; I10 Essential (primary) hypertension; Z01.818 Encounter for other preprocedural examination
CPT/HCPCS: 36415; 86850; 86900; 86901; 93005

== ENCOUNTER 2022-01-08 01:35 | Day surgery (SDC) | payer OTHER, SELFPAY ==
[2022-01-01 11:08] VITALS: BMI 32.3
--- NOTE | 2022-01-01 11:13 | PC.NURSE ---
Report to the Outpatient Waiting Room, entrance under the green pavilion located off [facility], at time 10:00 on date 01/08/22. Planned Procedure Time: 12:00. Time changes happen often and if your time is changed the preop area will call you the afternoon before. - You and your visitor will be asked to self-screen and do not enter if you have any COVID symptoms. - We encourage only one visitor and NO visitors under age 16 are allowed at this time. Your visitor will receive communication by the phone number that is given day of service. - The patient visitor is requested to social distance or may leave the building when not with patient due to restrictions. - A mask is OPTIONAL within the hospital. Patients may have clear liquids (water, carbonated beverages, clear teas, apple juice) until 3 hours prior to surgery (9:00) with a maximum of 20 ounces. - No food from midnight until time of surgery Take the following medications with a SIP of water the morning of surgery: INHALERS, METOPROLOL Medications to discontinue per physician: N/A Date to take last dose: N/A Please no make-up, nail indonesian, hairspray, perfume, deodorant, or body powder the day of surgery. No jewelry (including any body piercings) or valuables the day of surgery, leave them at home. Please take a shower or bath the night before, or the morning of, surgery with an antibacterial soap (HIBICLENS). Wear comfortable, loose fitting clothing. - Jewelry must be removed prior to entering the operating room. Rings and piercings that are not removed may be cut off. - The hospital will not accept responsibility for valuables. - Please leave all valuables, including medications, at home the day of surgery. If you are going home after surgery, a licensed taxi cab driver must drive you home. - NO public transportation without another adult. - We recommend that an adult stay with you for 24 hours following discharge. - We also recommend that you do not drive, make important decision, drink alcoholic beverages, or take any drugs that were not prescribed by your health care provider for at least 24 hours after your discharge time. Follow any additional instructions given to you from your surgeon. If you or anyone in your household have experienced Covid symptoms in the past week, please notify your surgeon or the nurse liaison at the phone number below for possible testing. Telephone instructions given to SPOUSE - BECCA and asked if any additional questions and then verbalized understanding. Patient advised to call surgeon office or pre surgery nurse liaison [phone] if any additional questions.
[2022-01-08] VITALS (10 sets, daily range): BP systolic 120–171; BP diastolic 77–95; PULSE 67–77; RESP 10–18; TEMP 36.1–37.1; O2SAT 95–99
--- NOTE | 2022-01-08 10:27 | WPDANESEPPF ---
Anes - Initial Pre Proc Eval Procedure: Operation Date: 01/08/22 12:00 Proposed Procedures p Robotic Assisted Left Inguinal Hernia Repair with Mesh - Rakel Arcos MD Date/Time: 01/08/22 10:27 Surgeon: Rakel Arcos MD Pre Op Diagnosis: left inguinal hernia Patient Data Age: 61 Gender: M Height: 1.68 m Weight: 90.6 kg Allergies Allergy/AdvReac Type Severity Reaction Status Date / Time No Known Allergies Allergy Verified 01/01/22 11:06 Home Medications Medication Instructions Recorded Confirmed Type albuterol sulfate 90 mcg/actuation 2 puff inhalation Q4-6H PRN 09/19/20 01/01/22 Rx aerosol inhaler (ProAir HFA) shortness of breath or wheezing #8.5 grams nitroglycerin 0.4 mg sublingual 0.4 mg sublingual Q5M 12/06/20 01/01/22 History tablet rosuvastatin 20 mg tablet 20 mg PO QHS #90 tabs 03/31/21 01/01/22 Rx metoprolol succinate 25 mg 25 mg PO DAILY #90 tabs 04/05/21 01/01/22 Rx tablet,extended release 24 hr zolpidem 5 mg tablet (Ambien) 5 mg PO PRN Sleep #30 tabs 04/05/21 01/01/22 Rx losartan 50 mg tablet (Cozaar) 50 mg PO DAILY #90 tabs 11/13/21 01/01/22 Rx fluticasone propionate 100 1 inh inhalation Q12H #180 ea 12/26/21 01/01/22 Rx mcg/actuation blister powder for inhalation (Flovent Diskus) Patient hx anesthesia problems: none Family hx anesthesia problems: none Results Review: All pre-operative results and documents have been reviewed as part of the pre-operative evaluation. [facility] Past Medical History Medical History Asthma CAD (coronary artery disease) Complex sleep apnea syndrome Dyslipidemia Essential hypertension Hearing loss Heart attack History of hepatitis C virus infection 2009 -treated at [facility] History of myocardial infarction Hypertension Insomnia Obstructive sleep apnea intolerant of a BiPAP machine Right-sided epistaxis Surgical History Surgical History H/O rotator cuff surgery (Unknown) b/l - early History of coronary artery stent placement 08/2020 Family History Family History Father Diabetes mellitus Acute myocardial infarction Hypertension Grandparent Heart disease Cancer pancreatic ca Hypertension Grandparent Acute myocardial infarction Grandparent Cancer Grandparent Acute myocardial infarction Sibling Hypertension Mother Hypertension Social History Social History (Updated 01/08/22 @ 11:46 by Je Victoria DO) Social History: the patient is and lives with his . She is the durable power banking attorney for healthcare. They have 2 children. The patient desires to be a full code. The patient drinks on the weekend he cannot quantify how much he drinks on the weekends but does not drink through the week. He is a lifelong nonsmoker. He does not use any marijuana or illicit drugs. 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 Smoking status: Never smoker Alcohol intake: current Drinks per week: 6 Alcohol use details: 6 beers/most days Substance use: never Substance use type: does not use Other substance usage details: socially Living arrangements: with family Gender identity (if verbalized by the patient): Male Sexual Orientation (if Verbalized by the Patient): Straight or Heterosexual Spiritual care concerns: No Agree to blood products: Yes Anes - Eval Final PreProcedure Day of Procedure 01/08/22 10:27 Patient weight: obese Heart: regular rate and rhythm Lungs: clear to auscultation Airway: Mallampati scale class II Neurological: alert and oriented Last oral intake: >/= 8 hours ASA classification: III Emergent: no Anesthetic plan: proceed Anesthesia type and monitoring: general ETT and standard monitoring Results Review: All pre-operative results and d
[2022-01-08] MEDS: LACTATED RINGERS 1,000 ML 30 ML IV CONT ×2 (10:46→15:02)
[2022-01-08] MEDS: ACETAMINOPHEN 500 MG TABLET 1000 MG PO (10:46)
[2022-01-08] MEDS: KETOROLAC 15 MG/ML VIAL (*BKC) IV PUSH (10:47)
--- NOTE | 2022-01-08 11:25 | PM.IMHP ---
H&P: HPI History of Present Illness Date/Time: 01/08/22 11:25 Chief Complaint: Left inguinal hernia Narrative: 60 y/o male presented to office with complaints of small bulge in left groin associated with pain w/pressure. He is able to reduce the bulge when he lays down. He noticed the bulge about a year ago. He has noticed a slight increase in the bulge. He is having normal BMs. His appetite is normal & tolerated. Review of Systems Review of Systems: All systems reviewed & are unremarkable except as noted in HPI and below PMFSH Past Medical History Medical History Asthma CAD (coronary artery disease) Complex sleep apnea syndrome Dyslipidemia Essential hypertension Hearing loss Heart attack History of hepatitis C virus infection 2009 -treated at [facility] History of myocardial infarction Hypertension Insomnia Obstructive sleep apnea intolerant of a BiPAP machine Right-sided epistaxis Surgical History Surgical History H/O rotator cuff surgery (Unknown) b/l - early History of coronary artery stent placement 08/2020 Family History Family History Father Diabetes mellitus Acute myocardial infarction Hypertension Grandparent Heart disease Cancer pancreatic ca Hypertension Grandparent Acute myocardial infarction Grandparent Cancer Grandparent Acute myocardial infarction Sibling Hypertension Mother Hypertension Social History Social History Social History: the patient is and lives with his . She is the durable power immigration attorney for healthcare. They have 2 children. The patient desires to be a full code. The patient drinks on the weekend he cannot quantify how much he drinks on the weekends but does not drink through the week. He is a lifelong nonsmoker. He does not use any marijuana or illicit drugs. 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 Smoking status: Never smoker Alcohol intake: current Drinks per week: 6 Alcohol use details: Socially Substance use: never Substance use type: does not use Other substance usage details: socially Living arrangements: with family Gender identity (if verbalized by the patient): Male Sexual Orientation (if Verbalized by the Patient): Straight or Heterosexual Spiritual care concerns: No Agree to blood products: Yes Meds Home Medications and Allergies Home Medications Medication Instructions Recorded Confirmed Type albuterol sulfate 90 mcg/actuation 2 puff inhalation Q4-6H PRN 09/19/20 01/01/22 Rx aerosol inhaler (ProAir HFA) shortness of breath or wheezing #8.5 grams nitroglycerin 0.4 mg sublingual 0.4 mg sublingual Q5M 12/06/20 01/01/22 History tablet rosuvastatin 20 mg tablet 20 mg PO QHS #90 tabs 03/31/21 01/01/22 Rx metoprolol succinate 25 mg 25 mg PO DAILY #90 tabs 04/05/21 01/01/22 Rx tablet,extended release 24 hr zolpidem 5 mg tablet (Ambien) 5 mg PO PRN Sleep #30 tabs 04/05/21 01/01/22 Rx losartan 50 mg tablet (Cozaar) 50 mg PO DAILY #90 tabs 11/13/21 01/01/22 Rx fluticasone propionate 100 1 inh inhalation Q12H #180 ea 12/26/21 01/01/22 Rx mcg/actuation blister powder for inhalation (Flovent Diskus) Allergies Allergy/AdvReac Type Severity Reaction Status Date / Time No Known Allergies Allergy Verified 01/01/22 11:06 Vital Signs Vital Signs - 24 hr 01/08/22 10:56 Temperature 36.1 C L Pulse Rate 67 Respiratory Rate 18 Blood Pressure 145/90 H Pulse Oximetry 99 Oxygen Delivery Room Air Exam Const: General: cooperative, comfortable, no acute distress and obese Resp: Auscultation: clear to auscultation bilaterally Cardio: Rate: regular rate Rhythm: regular rhythm GI: Inspection: normal to inspecti
--- NOTE | 2022-01-08 13:06 | WPDHPUPDATE1 ---
History and Physical Update Update Date/Time: 01/08/22 13:06 History and Physical has been reviewed, including an updated exam of the patient. There are NO changes in the patient's condition. Risks, benefits, and alternatives have been discussed and questions answered. Patient agrees to proceed with procedure.
[2022-01-08] MEDS: ceFAZolin 2 GM/D5W 50 ML 2 GM/50 ML BAG IVPB (13:15)
[2022-01-08] MEDS: BUPIVACAINE/EPINEPHRINE 0.25% 50 ML VIAL 30 ML INFILTRATE (14:25)
--- NOTE | 2022-01-08 15:03 | W.PM.PROC2 ---
Procedure Note - Detailed Date of Procedure 01/08/22 Pre-op Diagnosis left inguinal hernia Post-op Diagnosis Same Procedure Performed robotic assisted left inguinal hernia repair with mesh Surgeon Rakel Arcos MD Anesthesia General Indications 61 y/o M c LIH and worsening groin pain over last year Findings indirect left inguinal hernia Description of Procedure Patient was brought into the operating room and placed in the supine position. After adequate induction of general anesthesia, the patient was prepped and draped in normal sterile fashion. A time-out was then done to verify the patient's identity, as well as the procedure being performed. I began by making a 8 mm incision in the supraumbilical region, a Veress needle was then placed into the peritoneal cavity. CO2 gas was then insufflated and after adequate pneumoperitoneum was achieved, the Veress needle was removed. I then placed an 8 mm trocar through this incision. I then placed the endoscope through this trocar site and under direct visualization placed 2 further 8 mm ports in the right and left mid abdomen. The [employer] robot was then docked to the 3 trocar sites. I then scrubbed out and went to the robotic console. Upon examining the pelvis, it was noted that the patient had a moderate left inguinal hernia. The right side was examined and no hernia defect was noted. I began by making a preperitoneal flap approximately 6 cm superior to the defect. This flap was carried medially past the umbilical ligaments and laterally to the transversalis. It then began dissection of my medial compartment taking this down to the pubic tubercle. I then began the lateral dissection taking this down to the transversalis fascia. Once these compartments were achieved, I began dissection around the cord structures. A moderate sized indirect hernia was noted at this point. Using careful dissection, was able to reduce indirect hernia sac off the cord structures. Once this was adequately done, I went ahead and placed a large piece of 3D Max mesh into the abdominal cavity. The mesh was carefully positioned, centering the center of the mesh over the indirect defect. Once this was done, was very satisfied with our repair. Using 3-0 Vicryl sutures, I tacked the mesh medially to Jean's ligament. Two lateral sutures were placed from the mesh to the transversalis fascia. I then closed the peritoneal flap with a running 2.0 V Lock suture. The abdomen was then desufflated, and all ports were removed. All incisions were then closed with the 4.0 monocryl suture. Dermabond was placed on each wound. The patient tolerated the procedure well, was extubated in the operating room postoperatively, and will now be transferred to the recovery room in stable condition. Implants large 3DMax mesh Estimated Blood Loss 10 Drains No Packing No Pathology None sent Complications No immediate complications Condition Stable Disposition PACU [facility] Billing Surgery - Charge Forward: Surgery Billing
[2022-01-08] MEDS: fentaNYL CITRATE INJ (*CRX) 100 MCG/2 ML VIAL 25 MCG IV PUSH (15:20)
[2022-01-08] MEDS: oxyCODONE HCL (*CRX) 5 MG TAB IR PO (16:18)
--- NOTE | 2022-01-08 16:39 | SUR.PHASEII ---
PT WAS ABLE TO URINATE 200ML AND HIS PAIN WAS TOLERABLE. DISCHARGED HOMW WITH .
== END 2022-01-08 16:35 | disposition home or self-care (01) ==
PROVIDERS: PCP Family Medicine; Visit Provider Surgery
PROC: 8E0Y4CZ Robotic Assisted Procedure of Lower Extremity, Percutaneous Endoscopic Approach (ICD-10-PCS; CPT 49650; principal; 2022-01-08 12:00)
DX: K40.90 Unilateral inguinal hernia, without obstruction or gangrene, not specified as recurrent (principal); I25.10 Atherosclerotic heart disease of native coronary artery without angina pectoris; I10 Essential (primary) hypertension; E78.5 Hyperlipidemia, unspecified; G47.39 Other sleep apnea; J45.909 Unspecified asthma, uncomplicated; I25.2 Old myocardial infarction; Z86.19 Personal history of other infectious and parasitic diseases; Z95.5 Presence of coronary angioplasty implant and graft; Z79.51 Long term (current) use of inhaled steroids
CPT/HCPCS: 49650; S2900; 36415; 86850; 86900; 86901; 93005; A9270; C1781; J0690; J1100; J1170; J1885; J2250; J2405; J2704; J2710; J3010; J7030; J7120

== ENCOUNTER 2023-07-13 11:23 | Emergency (ER) | payer OTHER, SELFPAY ==
--- NOTE | ~2023-07-13 | CT_ITS ---
EXAMINATION:CT diagnostic chest wo con DATE: 07/13/2023 11:54 INDICATION: Right chest pain. Fall. TECHNIQUE: Computed tomography (CT) of the chest was performed without intravenous contrast. Automate d exposure control and iterative reconstruction technique were employed. The dose-length product (DLP ) was 441.68 mGy-cm. COMPARISON: Chest single view 07/13/23 FINDINGS: The visualized portions of the lung bases demonstrate mild atelectasis. No pleural effusion . The heart size is normal. There are coronary artery calcifications. No pericardial effusion. There is mild bilateral gynecomastia. There is diffuse hepatic steatosis. There is a gallstone in the gallb ladder, which is normal in size. There is mild thoracic spondylosis. There is severe cervical spondyl osis. There is mild chronic anterior wedging of multiple lower thoracic vertebral bodies. IMPRESSION: 1. No acute posttraumatic findings. Reviewed, dictated and finalized at location A.
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
--- NOTE | ~2023-07-13 | XR_ITS ---
EXAMINATION: XR chest 1V portable DATE: 07/13/2023 12:01 INDICATION: Right chest wall pain. Injury. TECHNIQUE: A single frontal view of the chest was obtained. COMPARISON: Chest CT 07/13/2023, chest 2 views 08/28/2020 FINDINGS: There is no pneumonia, pleural effusion, or pneumothorax. The heart size is normal. There a re changes of bilateral distal clavicle resection. There are suture anchors in the humeral heads bila terally. There is an old fracture deformity of right humeral head. IMPRESSION: 1. No acute cardiopulmonary disease. Reviewed, dictated and finalized at location A.
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
[2023-07-13 11:28] VITALS: BP 163/99; PULSE 70; RESP 10; TEMP 36.5; O2SAT 96
[2023-07-13] MEDS: oxyCODONE/ACETAMINOPHEN (*CRX) 5-325 MG TABLET 1 TABLET PO (11:41)
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
[2023-07-13] MEDS: TETANUS,DIPHTHERIA,AC PERTUSSIS ADULT (0.5 ML) BOOSTRIX IM (11:43)
[2023-07-13 12:39] VITALS: BP 141/78; PULSE 77; RESP 15; O2SAT 99
== END 2023-07-13 12:56 | disposition home or self-care (01) ==
PROVIDERS: Emergency Provider Preventive Medicine Aerospace Medicine; PCP Family Medicine
DX: S20.211A Contusion of right front wall of thorax, initial encounter (principal); S50.01XA Contusion of right elbow, initial encounter; R07.89 Other chest pain; S80.812A Abrasion, left lower leg, initial encounter; S80.811A Abrasion, right lower leg, initial encounter; J45.909 Unspecified asthma, uncomplicated; I25.10 Atherosclerotic heart disease of native coronary artery without angina pectoris; I10 Essential (primary) hypertension; V18.0XXA Pedal cycle driver injured in noncollision transport accident in nontraffic accident, initial encounter; Z23 Encounter for immunization
CPT/HCPCS: 70450; 71045; 71250; 73080; 90471; 90715; 99284; A9270

== ENCOUNTER 2024-05-06 09:06 | Emergency (ER) | payer MEDICARE, OTHER, SELFPAY ==
[2024-05-06 09:14] VITALS: BP 151/84; PULSE 71; RESP 16; TEMP 36.2; O2SAT 97
--- NOTE | 2024-05-06 09:17 | ED.URI ---
HPI - URI/Sore Throat General Chief Complaint: Upper Respiratory Infection Stated Complaint: Dizziness Time Seen by Provider: 05/06/24 09:53 Source: patient and RN notes reviewed Mode of arrival: ambulatory Limitations: no limitations History of Present Illness HPI Narrative: 63-year-old male presents with concern for ear pressure, sinus pressure and congestion, dizziness. Reports about 4 days ago he flew on an airplane and since then has been having the symptoms. He reports muffled hearing in the right ear. He denies fever, body aches, chills, sweats. He denies headaches, weakness in the extremity, difficulty speaking, difficulty swallowing, vision changes. He denies chest pain or shortness of breath. Reports dizziness as room spinning in nature and is mainly when he turns his head or looks or down. MD elicited complaint: nasal congestion Related Data Home Medications ?Medication ?Instructions ?Recorded ?Confirmed ?Last Taken ?Type aspirin 81 mg capsule 81 mg PO DAILY 06/05/22 09/27/23 Unknown History Allergies Allergy/AdvReac Type Severity Reaction Status Date / Time No Known Allergies Allergy Verified 09/27/23 10:09 Review of Systems Review of Systems: CONSTITUTIONAL: Denies malaise, chills, sweats, or fever. EYES: Denies visual changes, redness, or discharge. ENT: Reports rhinorrhea, congestion, sinus pain, otalgia CARDIOVASCULAR: Denies chest pain, palpitations, or edema. RESPIRATORY: Reports cough. Denies dyspnea. GASTROINTESTINAL: Denies abdominal pain, nausea, vomiting, diarrhea SKIN: Denies rash or itching. MUSCULOSKELETAL: Denies myalgia. NEUROLOGIC: Denies headache. Reports dizziness All systems reviewed & are unremarkable except as noted in HPI and below PMFSH Past Medical History Medical History Asthma Athletes foot CAD (coronary artery disease) Complex sleep apnea syndrome Dyslipidemia Essential hypertension Hearing loss Heart attack History of hepatitis C virus infection 2010 -treated at [facility] History of myocardial infarction Hypertension Insomnia Left inguinal hernia Multiple atypical skin moles Right-sided epistaxis Surgical History Surgical History H/O left inguinal hernia repair (~01/08/22) robotic assisted LIH repair with mesh on 01/08/22 H/O rotator cuff surgery (Unknown) b/l - early History of coronary artery stent placement (~08/2020) 08/2020 Family History Family History Father Diabetes mellitus Acute myocardial infarction Hypertension Grandparent Heart disease Cancer pancreatic ca Hypertension Grandparent Acute myocardial infarction Grandparent Cancer Grandparent Acute myocardial infarction Sibling Hypertension Mother Hypertension Social History Social History Social History: the patient is and lives with his . 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 They have 2 children. The patient desires to be a full code. The patient drinks on the weekend he cannot quantify how much he drinks on the weekends but does not drink through the week. He is a lifelong nonsmoker. He does not use any marijuana or illicit drugs. 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 Smoking status: Never smoker Alcohol intake: current Drinks per week: 6 Alcohol use details: 6 beers/most days Substance use: never Substance use type: does not use Other substance usage details: socially Lack of Transportation: No Lack of Food: Never True Current Housing: I Have Housing Concerned About Future Housing: No Difficulty Paying Gas/Electric Bills: No Difficulty Paying for Meds: No Currently Unemployed: No Education: High School Diploma/GED Difficulty w/ Childcare or Family Care: No Living arrangements: with family Occupation/Education: occupation Gender identity (if verbalized by the patient): Male Sexual Orientation (if Verbalized by the Patient): Straight or Heterosexual Spiritual care concerns: No Agree to blood products: Yes Comments At time of signature, agree with nursing past medical, surgical, social and family history. There is no relevant family history pertinent to the presenting complaint Exam Narrative: GENERAL: Well-appearing, well-nourished, and in no acute distress. HEAD: Normocephalic, atraumatic. EYES: PERRLA, sclera clear, and EOMI. No nystagmus. ENT: Nares clear. Mucous membranes moist. TM pearly faye with dull light reflex bilaterally; no tragal tenderness. Oropharynx without erythema or lesions. Tonsils not enlarged and without exudate. NECK: Supple. No lymphadenopathy. CHEST: No respiratory distress. Clear to auscultation. No bony deformities, no asymmetry. Speaks in full sentences. HEART: Regular rate and rhythm. No murmur heard. Normal peripheral pulses. EXTREMITIES: Normal range of motion. No edema. Normal strength and sensation. SKIN: Warm, dry, no visible rash. NEURO: Alert and oriented x3. No focal deficits. Cranial nerves II through XII grossly intact PSYCH: Normal mood and affect Course Course Emergency Course: Patient is aware of diagnosis, understands and agrees to treatment plan. Anticipatory guidance given. Patient agrees to follow-up as directed and is aware of reasons to seek care at the emergency department. Portions of this record may have been created with voice recognition software Level of Care: Express Care Visit Vital Signs Vital signs: Vital Signs Temperature 97.1 F L 05/06/24 09:14 Pulse Rate 71 05/06/24 09:14 Respiratory Rate 16 05/06/24 09:14 Blood Pressure 151/84 H 05/06/24 09:14 Pulse Oximetry 97 05/06/24 09:14 Temperature 97.1 F L 05/06/24 09:14 Pulse Rate 71 05/06/24 09:14 Respiratory Rate 16 05/06/24 09:14 Blood Pressure 151/84 H 05/06/24 09:14 Pulse Oximetry 97 05/06/24 09:14 Reviewed. MDM - URI/Sore Throat MDM Narrative Medical decision making narrative: Patients vertigo is felt to be likely peripheral in origin. there is no diplopia, dysarthria, or dyshphagia. Patients gait is stable and there are no focal neurological deficits on exam. Risk for central causes has been reviewed. Patient felt likely reasonable for continued outpatient management and risks are felt to outweigh benefits for further imaging studies at this time Other Differential diagnosis considered: Aguilar virus, strep pharyngitis, allergic rhinitis, upper respiratory tract infection, sinusitis, rhinosinusitis, nasopharyngitis. viral pharyngitis, otitis media, otitis externa, pneumonia, bronchitis, viral cough syndrome, viral syndrome, and influenza. Exam findings show no acute concerns or changes; patient is non-toxic appearing and is in no distress. Patient is appropriate for outpatient treatment and follow-up. Lab Data Attestation: I reviewed the patient's lab results. Critical Care Time Critical Care Time Critical Care Time: No Discharge Plan Discharge Clinical Impression: Fluid level behind tympanic membrane of right ear, Dizziness Patient Disposition: Home, Self-Care Condition: Stable Instructions: Dizziness (ED), Fluid In The Ear (Serous Otitis Media) (ED) Additional Instructions: 1) Please follow-up with your primary care doctor in the next 1-2 days. 2) If you have any worsening of symptoms or any other urgent concerns please go to the ER. 3) Please take medications as prescribed and continue taking your home medications as usual. 4) Please read and follow information included in discharge instructions. Patient Language: Turkish Prescriptions: New meclizine 25 mg tablet 25 mg PO TID PRN (Reason: dizziness) Qty: 14 0RF methylprednisolone [Medrol (Rafael)] 4 mg tablets,dose pack See Rx Instructions .ROUTE .COMPLEX Qty: 21 0RF Rx Instructions: orally per package directions No Action aspirin 81 mg capsule 81 mg PO DAILY budesonide 90 mcg/actuation aerosol powdr breath activated 2 inh inhalation Q12H Qty: 1 3RF ketoconazole 2 % cream 1 applic topical DAILY Qty: 15 3RF lidocaine 5 % adhesive patch,medicated 2 patch topical DAILY Qty: 30 0RF Rx Instructions: leave on most painful area for up to 12 hrs Airsupra 90-80 mcg/actuation HFA aerosol inhaler 2 inh inhalation ONCE Qty: 10.7 1RF Rx Instructions: as a single dose; may repeat up to 6 doses per day (12 inhalations) losartan [Cozaar] 50 mg tablet 50 mg PO DAILY Qty: 90 1RF metoprolol succinate 25 mg tablet extended release 24 hr 25 mg PO DAILY Qty: 90 1RF rosuvastatin 20 mg tablet 20 mg PO QHS Qty: 90 1RF Follow-up/Referrals: Manny Slaughter MD [Primary Care Provider] - Time of Disposition: 10:02
== END 2024-05-06 10:04 | disposition home or self-care (01) ==
PROVIDERS: Emergency Provider Nurse Practitioner; PCP Family Medicine
DX: H73.891 Other specified disorders of tympanic membrane, right ear (principal); R42 Dizziness and giddiness; J45.909 Unspecified asthma, uncomplicated; I25.10 Atherosclerotic heart disease of native coronary artery without angina pectoris; I10 Essential (primary) hypertension; E78.5 Hyperlipidemia, unspecified; I25.2 Old myocardial infarction; Z95.5 Presence of coronary angioplasty implant and graft
CPT/HCPCS: 99213; G0463